=== PATIENT | male | born 2000 | race Caucasian/White ===

== ENCOUNTER → 2024-03-10 18:27 | Outpatient (REF) | payer OTHER, SELFPAY | LOC: MRI 3T 18:27 | PROVIDERS: ATTENDING PHYSICIAN Psychiatry & Neurology Psychiatry; FAMILY PHYSICIAN Family Medicine | DX: I69.198 Other sequelae of nontraumatic intracerebral hemorrhage (principal) | CPT/HCPCS: 70551 ==